=== PATIENT | male | born 1965 | race African-American/Black ===

== ENCOUNTER → 2020-05-01 15:24 | Outpatient (CLI) | payer SELFPAY ==
[2020-05-01 17:15] LABS: Basophils # 0.1 K/mm3 (0-0.2); Basophils % 0.6 % (0.1-2.0); Eosinophils # 0.5 K/mm3 (0.0-0.4); Eosinophils % 5.7 % (0.1-12.0); Hematocrit 46.8 % (42.0-52.0); Hemoglobin 14.3 g/dL (14.1-18.0); Lymphocytes # 3.2 K/mm3 (0.7-4.5); Lymphocytes % 34.5 % (10-50); Mean Corpuscular HGB Conc 30.6 g/dL (31.8-35.4); Mean Corpuscular Hemoglobin 28.5 pg (27.0-31.2); Mean Corpuscular Volume 93.1 fl (80-94); Mean Platelet Volume 9.3 fl (7.4-10.4); Monocytes # 0.6 K/mm3 (0.1-1.0); Monocytes % 6.3 % (1.7-9.3); Neutrophils # 4.9 K/mm3 (1.8-7.8); Neutrophils % 52.9 % (37.0-80.0); Platelet Count 188 K/mm3 (142-424); Red Blood Count 5.03 M/mm3 (4.60-6.20); Red Cell Distribution Width 14.6 % (11.5-17.5); White Blood Count 9.2 K/mm3 (4.8-10.8)
== END ==
PROVIDERS: PCP Physician Assistant; Visit Provider Physician Assistant
DX: Z20.822 Contact with and (suspected) exposure to COVID-19 (principal)
CPT/HCPCS: 36415; 85025; U0003

== ENCOUNTER 2022-12-26 15:54 | Emergency (ER) | payer SELFPAY ==
[2022-12-26] VITALS (11 sets, daily range): BP systolic 120–138; BP diastolic 83–96; PULSE 78–209; RESP 13–21; TEMP 36.5–36.6; O2SAT 97–99; BMI 31.6
--- NOTE | 2022-12-26 15:54 | ECG_ITS ---
APPROVED REPORT Exam: Resting ECG HR:212 bpm ECG Measurements Heart Rate 212 AXES QRSd 103 QRS 49 QT 207 T 30 QTc 309 Conclusion SUPRAVENTRICULAR TACHYCARDIA NONSPECIFIC ST & T-WAVE ABNORMALITY CRITICAL TEST RESULT UNCONFIRMED REPORT Electronically signed by : Ronan Hunter MD 12/27/2022 19:25:24
--- NOTE | 2022-12-26 15:58 | XR_ITS ---
PROCEDURE INFORMATION: Exam: XR Chest Exam date and time: 12/26/2022 4:41 PM Age: 57 years old Clinical indication: Shortness of breath; Additional info: Cp SOCristopher TECHNIQUE: Imaging protocol: Radiologic exam of the chest. Views: 1 view. COMPARISON: CHESTWO CT chest wo con 04/09/2018 4:36 PM FINDINGS: Tubes, catheters and devices: Extensive apparatus is present over the chest wall which limits study. Lungs: No evidence of acute pulmonary disease or infiltrates; lung julien appear clear. Pleural spaces: No evidence of pleural effusion, pneumothorax, or pleural thickening in the visualized pleural spaces. Heart/Mediastinum: Stable cardiac and mediastinal contours. Bones/joints: No evidence of acute osseous abnormalities within the visualized portions of the thoracic spine and ribs. Osseous structures appear appropriate for patient age. Gastrointestinal tract: There is mild gaseous distention of partially visualized bowel loops. IMPRESSION: No dense parenchymal consolidation, pleural effusion, or pneumothorax.
--- NOTE | 2022-12-26 16:05 | ECG_ITS ---
APPROVED REPORT Exam: Resting ECG HR:89 bpm ECG Measurements Heart Rate 89 AXES WV 135 P 63 QRSd 90 QRS 70 QT 327 T 63 QTc 373 Conclusion SINUS RHYTHM WITH SINUS ARRHYTHMIA MODERATE ST DEPRESSION [0.05+ mV ST DEPRESSION] ABNORMAL ECG UNCONFIRMED REPORT Electronically signed by : Ronan Hunter MD 12/27/2022 19:25:17
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
--- NOTE | 2022-12-26 16:26 | PC.NURSE ---
pt placed on [employer] technical [employer]. HR was greater than 200. zoll pads placed on pt. MD at bedside. vagal maneuver performed by MD -1602 HR decreased to 88 -1603 repeat EKG performed -1605
[2022-12-26 16:56] LABS: VBG Base Excess -4.5 mmol/L (-2.4-2.3); VBG HCO3 21.7 mmol/L (23-30); VBG Oxygen Saturation 56.3 % (50-70); VBG PCO2 43.4 mmol/L (35-51); VBG PH 7.32 mmol/L (7.31-7.41); VBG PO2 28.4 mmol/L (28-40)
[2022-12-26 17:02] LABS: Alanine Aminotransferase 39 U/L (12-78); Albumin Level 5.1 g/dl (3.5-5.0); Albumin/Globulin Ratio 1.3 (1.1-1.8); Alkaline Phosphatase 102 U/L (38-126); Anion Gap 18.8 mEq/L (5-15); Aspartate Amino Transferase 45 U/L (17-59); Bilirubin,Total 0.6 mg/dl (0.2-1.3); Blood Urea Nitrogen 18 mg/dl (9-20); Calcium 10.3 mg/dl (8.4-10.2); Carbon Dioxide 21 mmol/L (22.0-30.0); Chloride 106 mmol/L (98-107); Creatinine Clearance Estimated 99 mL/min (50-200); Estimated Glomerular Filt Rate 57 ml/min (>60); GFR (African American) 69 ML/MIN (>60); Globulin 3.8 g/dL (1.3-3.2); Glucose 99 mg/dl (74-100); Potassium 4.8 mmoL/L (3.5-5.1); Sodium 141 mmol/L (136-145); Total Protein,Serum 8.9 g/dl (6.3-8.2)
[2022-12-26 17:07] LABS: D-Dimer 1.08 ug/mL (0.0-0.5)
--- NOTE | 2022-12-26 17:19 | CT_ITS ---
PROCEDURE INFORMATION: Exam: CTA Chest With Contrast Exam date and time: 12/26/2022 5:43 PM Age: 57 years old Clinical indication: Abnormal findings; Abnormal diagnostic tests; Elevated d-dimer; Additional info: Persistent tachycardia, dimer 1.1 TECHNIQUE: Imaging protocol: Computed tomographic angiography of the chest with contrast. Exam focused on the arteries. 3D rendering (Not supervised by radiologist): MIP and/or 3D reconstructed images were created by the technologist. Radiation optimization: All CT scans at this facility use at least one of these dose optimization techniques: automated exposure control; mA and/or kV adjustment per patient size (includes targeted exams where dose is matched to clinical indication); or iterative reconstruction. Contrast material: ISO 370; Contrast volume: 75 ml; Contrast route: INTRAVENOUS (IV); REPORTING DATA: Count of CT and Cardiac NM exams in prior 12 months: This patient has received 0 known CTs and 0 known cardiac nuclear medicine studies in the 12 months prior to the current study. COMPARISON: 1. CR XR CHEST PORTABLE 12/26/2022 4:[address] chest wo con 04/09/2018 4:36 PM FINDINGS: Pulmonary arteries: There is fair opacification of the pulmonary arterial tree. No central pulmonary arterial filling defect is seen. Aorta: Unremarkable. No aortic aneurysm. No aortic dissection. Lungs: There are scattered calcified granulomas in the lungs which most likely reflect prior granulomatous disease. There are scattered areas of emphysema throughout the lungs. Scattered areas of bronchial wall thickening which are likely chronic inflammatory. A few areas of subpleural reticulation are noted, nonspecific. Pleural spaces: Unremarkable. No pneumothorax. No pleural effusion. Heart: Heart is upper limits of normal in size. Coronary arteries: There is mild coronary atherosclerotic disease/calcification although evaluation is limited secondary to the non gated nature of the study. Lymph nodes: There are calcified mediastinal lymph nodes likely reflecting prior granulomatous disease. There are mildly prominent mediastinal lymph nodes which are nonenlarged. Spleen: There are multiple calcifications in the spleen most likely reflects small granulomas. Adrenal glands: 2.4 cm left adrenal lesion, stable since at least 2018 and compatible with adenoma. Stable 1.8 cm right adrenal adenoma. Bones/joints: Unremarkable. No acute fracture. Soft tissues: Unremarkable. IMPRESSION: 1. There is fair opacification of the pulmonary arterial tree. No central pulmonary arterial filling defect is seen. 2. No dense parenchymal consolidation, pleural effusion, or pneumothorax. COMMENTS: In the absence of a history or active diagnosis of lung cancer, it is recommended that this patient with emphysema be evaluated for enrollment in a low dose CT lung cancer screening program.
[2022-12-26 17:23] LABS: Troponin I < 0.01 ng/ml (0.00-0.034)
--- NOTE | 2022-12-26 17:34 | PC.NURSE ---
pt to CT via stretcher
[2022-12-26 17:35] LABS: Thyroid Stimulating Hormone 3.52 uIU/mL (0.465-4.68)
[2022-12-26 17:43] LABS: Basophils % 0.4 % (0.1-2.0); Eosinophils # 0.2 K/mm3 (0.0-0.4); Eosinophils % 2.4 % (0.1-12.0); Hematocrit 46.3 % (42.0-52.0); Hemoglobin 15.3 g/dL (14.1-18.0); Lymphocytes # 1.7 K/mm3 (0.7-4.5); Lymphocytes % 21.1 % (10-50); Mean Platelet Volume 9.5 fl (7.4-10.4); Monocytes # 0.7 K/mm3 (0.1-1.0); Monocytes % 7.9 % (1.7-9.3); Neutrophils # 5.6 K/mm3 (1.8-7.8); Neutrophils % 68.3 % (37.0-80.0); Platelet Count 160 K/mm3 (142-424); Red Blood Count 5.09 M/mm3 (4.60-6.20); Red Cell Distribution Width 14.5 % (11.5-17.5); White Blood Count 8.2 K/mm3 (4.8-10.8)
[2022-12-26 20:00] LABS: Troponin I 0.07 ng/ml (0.00-0.034)
--- NOTE | 2022-12-26 20:08 | ECG_ITS ---
APPROVED REPORT Exam: Resting ECG HR:85 bpm ECG Measurements Heart Rate 85 AXES WI 165 P 70 QRSd 92 QRS 58 QT 337 T 56 QTc 379 Conclusion SINUS RHYTHM NORMAL ECG UNCONFIRMED REPORT Electronically signed by : Ronan Hunter MD 12/27/2022 19:24:57
== END 2022-12-26 20:19 | disposition home or self-care (01) ==
PROVIDERS: Emergency Provider Emergency Medicine
DX: I47.10 Supraventricular tachycardia, unspecified (principal); I21.4 Non-ST elevation (NSTEMI) myocardial infarction; F17.210 Nicotine dependence, cigarettes, uncomplicated
CPT/HCPCS: 36415; 71045; 71275; 80053; 82803; 84436; 84443; 84484; 85025; 85378; 93005; 96361; 96365; 96374; 96375; 99285; J3475; Q9967